=== PATIENT | female | born 1975 | race Caucasian/White ===

== ENCOUNTER 2019-12-26 10:36 | Outpatient (CLI) | payer OTHER ==
--- NOTE | 2019-12-26 11:19 | MMO ---
Left Breast MAMMO Unilat Diag DDI LT+AVEL. CLINICAL HISTORY: Patient is 44 years old and is seen for additional evaluation requested at current screening. The patient has no family history of breast cancer. The patient has no personal history of cancer. VIEWS: The views performed were: left craniocaudal spot compression with tomosynthesis; left mediolateral oblique spot compression with tomosynthesis; and left mediolateral with tomosynthesis. FILMS COMPARED: The present examination has been compared to prior imaging studies performed at [facility] on 12/22/2019, and at [facility] on 12/04/2014. This study has been interpreted with the assistance of computer-aided detection. MAMMOGRAM FINDINGS: There are scattered fibroglandular densities. The questionable asymmetric density did not persist with the additional views. There are no suspicious masses, suspicious calcifications, or new areas of architectural distortion. IMPRESSION: THERE IS NO MAMMOGRAPHIC EVIDENCE OF MALIGNANCY. A ROUTINE FOLLOW-UP MAMMOGRAM IN 1 YEAR IS RECOMMENDED. THE RESULTS OF THIS EXAM WERE SENT TO THE PATIENT. ACR BI-RADS Category 2 - Benign finding MAMMOGRAPHY NOTE: 1. A negative mammogram report should not delay a biopsy if a dominant of clinically suspicious mass is present. 2. Approximately 10% to 15% of breast cancers are not detected by mammography. 3. Adenosis and dense breasts may obscure an underlying neoplasm. Reported by: KRAIG REYNOSO MD Electonically Signed: [id number]
== END 2019-12-26 10:37 | disposition home or self-care (01) ==
LOC: BICMAMMO 10:36
PROVIDERS: ATTEND Obstetrics & Gynecology
DX: R92.8 Other abnormal and inconclusive findings on diagnostic imaging of breast (principal)
CPT/HCPCS: G0279

== ENCOUNTER 2020-01-26 10:31 | Day surgery (SDC) | payer OTHER ==
[2020-01-22 00:14] LABS: #Basophils 0.1 10x3/uL (0.0-0.2); #Eosinphils 0.1 10x3/uL (0.0-0.5); #Monocytes 0.7 10x3/uL (0.0-1.1); #Neutrophils 4.6 10x3/uL (1.5-8.4); %Basophils 0.6 % (0.0-2.0); %Eosinophils 1.1 % (0.0-6.0); %Lymphocytes 31.6 % (18.0-47.0); %Monocytes 9.3 % (0.0-10.0); %Neutrophils 57.3 % (40.0-75.0); Hemoglobin 13.6 g/dL (12.0-16.0); Mean Corpuscular HGB CONC 32.6 G/DL (32.0-36.0); Mean Corpuscular Hemoglobin 30.2 PG (27.0-33.0); Mean Corpuscular Volume 92.7 fl (80.0-100.0); Mean Platelet Volume 11.3 fl (7.4-10.4); Platelet Count 246 10x3/uL (130-400); RBC Distribution Width 13.2 % (11.5-14.5)
[2020-01-22 00:25] LABS: BHCG - Serum Negative (NEGATIVE); Pregs Control Background? CLEAR/WHITE (CLR/WHITE); Pregs Control Bar Appear? YES (CONTROL BAR)
[2020-01-22 13:15] LABS: SARS-CoV-2 MS2 Positive; SARS-CoV-2 N Gene Negative; SARS-CoV-2 S Gene Negative; SARS-CoV-2 by NAA Not Detected (NotDetected); SARS-CoV-2 orf1ab Negative
[2020-01-23 10:02] VITALS: BMI 28.3
[~2020-01-26 10:31] MED LIST: Dexamethasone 20 MG/5 ML VIAL ONE; Glycopyrrolate 0.2 MG/ML 5 ML SYRINGE ONE; Lidocaine 1% PF 5 ML VIAL ONE; Ondansetron PF 4 MG/2 ML Vial ONE; PROPOFOL 200 MG/20 ML VIAL ONE; Rocuronium Bromide 10 MG/ML (10ML VIAL) ONE
[2020-01-26] MEDS ORDERED: Famotidine/PF 20 mg/2ml Vial ONE (10:47)
[2020-01-26] MEDS ORDERED: CeleCOXIB 100 MG CAP ONE (10:47)
[2020-01-26] MEDS ORDERED: Gabapentin 300 MG CAP ONE (10:47)
[2020-01-26] MEDS ORDERED: Midazolam HCl 2 mg/2 ml Vial ONE ×2 (13:25→14:03)
[2020-01-26] MEDS ORDERED: Fentanyl 100 MCG/2 ML VIAL ONE (14:03)
[2020-01-26] MEDS ORDERED: Bupivacaine PF 0.5% 30 ML VIAL ONE (14:06)
[2020-01-26] MEDS ORDERED: Lidocaine 1% w/Epinephrine 1:100K 20 ML VIAL ONE (14:07)
[2020-01-26] MEDS ORDERED: Bisacodyl 10 MG SUPP PR PRN (14:47)
[2020-01-26] MEDS ORDERED: Promethazine HCl 25 MG/ML VIAL IM PRN ×2 (14:47→16:34)
[2020-01-26] MEDS ORDERED: traMADol HCl 50 MG TAB PO PRN (14:47)
[2020-01-26] MEDS ORDERED: HYDROcodone/Acetaminophen 5/325 mg Tablet PO PRN ×2 (14:47)
[2020-01-26] MEDS ORDERED: diphenhydrAMINE 25 MG CAP PO PRN (14:47)
[2020-01-26] MEDS ORDERED: Morphine 4 MG/ML VIAL SLOW IVP PRN (14:47)
[2020-01-26] MEDS ORDERED: Simethicone Chewable 80 MG TAB PO PRN (14:47)
[2020-01-26] MEDS ORDERED: Ondansetron PF 4 MG/2 ML Vial IVP PRN (14:47)
[2020-01-26] MEDS ORDERED: Sodium Chloride 0.9% 1,000 ML IV SCH (15:00)
[2020-01-26] MEDS ORDERED: Ropivacaine 0.2% 550 ML 750 ML NERVE BLCK SCH ×2 (15:00→16:30)
[2020-01-26] MEDS ORDERED: Promethazine HCl 25 MG/ML VIAL SLOW IVP PRN (16:34)
[2020-01-26] MEDS ORDERED: Meperidine HCl/PF 25 MG/ML VIAL SLOW IVP PRN (16:34)
[2020-01-26] MEDS ORDERED: Ondansetron HCl/PF 4 MG/2 ML Vial IVP PRN (16:34)
[2020-01-26] MEDS ORDERED: Ketorolac Tromethamine 30 MG/ML VIAL IVP SCH (18:00)
--- NOTE | 2020-01-26 19:12 | OP ---
DATE OF PROCEDURE: 01/26/2020 PREOPERATIVE DIAGNOSES: 1. Menorrhagia, dysmenorrhea. 2. Desires to clinical surgical management of hysterectomy. PROCEDURES PERFORMED: 1. Removal of ParaGard IUD. 2. Robotic-assisted total laparoscopic hysterectomy with bilateral salpingectomy. 3. ON-Q pump placement. MIDDLE SCHOOL PROFESSIONAL: Thelma Ortiz PA-C COMPLICATIONS: None. ESTIMATED BLOOD LOSS: Less than 50 mL. OPERATIVE FINDINGS: 1. Normal-appearing vagina and cervix. 2. ParaGard IUD removed without difficulty. 3. Normal-appearing uterus and tubes. 4. Adhesions of the bladder to the cervix. 5. Adhesions of the right ovary to the uterus. ANESTHESIA: GETA. PROCEDURE IN DETAIL: The patient was taken back to the OR with IV fluids running. When she was in the OR, general anesthesia was obtained. The patient was placed in low dorsal lithotomy position. The vagina and abdomen were prepped and draped in normal fashion for gynecologic surgery. The surgeons were gowned and gloved. Johnson catheter was placed to drain the bladder and attached to a Grayson syringe for bladder manipulation if needed during the case. The vagina was inspected with a speculum. The cervix was grasped with a single-tooth tenaculum and sounded to 8 cm. A PARK manipulator was assembled with 8-cm tip and a 4-cm cup and placed in the uterus and vagina in routine fashion for uterine manipulation during the case. The surgeon's gloves were changed. Attention was turned to the laparoscopic portion of the case. Beginning at the supraumbilical fold, local anesthesia was placed underneath the skin. A 12-mm skin incision was made with a scalpel. The Veress needle was placed through this incision and the abdomen was insufflated without difficulty. The needle was removed. A 12-mm trocar was placed through the distended abdomen and the laparoscope was placed through this trocar with the above findings noted. The patient was placed in Trendelenburg position in similar fashion and under direct visualization, a right upper quadrant 11-mm medical receptionist assistant port and right and lower quadrant 8-mm robotic trocar ports were placed under direct visualization without complication. With all 4 ports placed, the robotic arm was docked at the patient's bedside and the instruments were directed under direct visualization into the pelvis. The combination of monopolar scissors and bipolar fenestrated grasper were used to complete the case. Beginning on the patient's left side, the left fallopian tube was grasped and elevated away from the pelvic sidewall. It was cauterized and transected and removed from the operative field. The utero-ovarian ligament on the patient's left side was cauterized and transected. The round ligament on the patient's left side was cauterized, transected, and divided into anterior and posterior leaves. The round ligament was dissected down towards the level of the uterine artery. The anterior aspect of the ligament was taken down towards the level of the cervix. Some adhesions were noted, which appeared to be pulling the bladder up over the cervix. The bladder was back filled and cervicovesical fascia was dissected to allow the bladder to fall away from the planned colpotomy site. Next, the bladder was emptied. The uterine artery on the patient's left side was further skeletonized. It was then cauterized and transected. Attention was then turned to the right side. The right fallopian tube was cauterized and transected and removed from the operative field. The right ovary was noted to be densely adhered to the posterior and lateral aspects of the uterus. The round ligament on the patient's right side was cauterized transected and dissected down into the anterior and posterior leaves towards the level of the uterine artery. The right ovarian ligament and adhesions were then taken down to allow the right ovary to fall away to the pelvic sidewall. The bladder was backfilled again and from the right side moving medially, the anterior leaf of the round ligament created a bladder flap and the bladder was further dissected away from the planned colpotomy site. The uterine artery on the patient's right side was skeletonized, cauterized, and transected. The colpotomy was then performed excising the uterus and cervix from the vagina circumferentially. The uterine cervix specimen was then retracted into the vagina. The vaginal cuff was copiously irrigated and dry. Any small areas of bleeding were controlled with Bovie cauterization. The vagina was then reapproximated in 2 layers with a running suture of Stratafix suture. After the second layer closure, the vagina was copiously irrigated and suctioned dry. No areas of bleeding were noted. The ureters, which had been identified earlier in the case were again examined and vermiculation was noted bilaterally. The pressure was dropped to 6 mmHg and there was no evidence of bleeding. An ON-Q catheter tip was placed under direct visualization through the abdominal wall and directed down into the pelvis. It was primed. All of the trocars were then removed from the abdomen. The gas was released from the abdomen. The supraumbilical fascia was closed with Vicryl suture. All 4 skin incisions were closed with Monocryl suture and dressed with Dermabond dressing. The vagina was inspected at the end of the case with no bleeding noted. The patient was then cleaned, extubated, and transferred to the recovery room in good condition. Job ID: [id number]
[2020-01-26] MEDS ORDERED: Topiramate 100 MG TAB PO SCH (21:00)
[2020-01-26 23:11] VITALS: BP 155/92; TEMP 98.8
[2020-01-27] MEDS ORDERED: Ibuprofen 800 MG TAB PO SCH (06:00)
[2020-01-27] MEDS ORDERED: Escitalopram Oxalate 20 mg Tablet PO SCH (09:00)
== END 2020-01-26 14:32 | disposition home or self-care (01) ==
LOC: SDC 10:31 → UNDOADMIN 14:47 → 3SW 14:47 → UNDODISIN 20:40
PROVIDERS: ATTEND Obstetrics & Gynecology
PROC: 0UT94ZZ Resection of Uterus, Percutaneous Endoscopic Approach (ICD-10-PCS; principal; 2020-01-26)
PROC: 0UT74ZZ Resection of Bilateral Fallopian Tubes, Percutaneous Endoscopic Approach (ICD-10-PCS; principal; 2020-01-26)
DX: D25.1 Intramural leiomyoma of uterus (principal); N73.6 Female pelvic peritoneal adhesions (postinfective); N92.0 Excessive and frequent menstruation with regular cycle; N94.6 Dysmenorrhea, unspecified; G89.18 Other acute postprocedural pain; G43.909 Migraine, unspecified, not intractable, without status migrainosus; F41.9 Anxiety disorder, unspecified; F17.200 Nicotine dependence, unspecified, uncomplicated; Z79.899 Other long term (current) drug therapy; Z20.828 Contact with and (suspected) exposure to other viral communicable diseases
CPT/HCPCS: 36415; 84703; 85025; 86850; 86900; 86901; 87635; 88307; A4306; J0690; J1100; J1885; J2250; J2405; J2704; J2795; J3010; S0020; S0028; U0003

== ENCOUNTER 2020-02-11 09:35 | Emergency (ER) | payer SELFPAY ==
[2020-02-11] MEDS ORDERED: Morphine 4 MG/ML VIAL ONE (10:40)
[2020-02-11] MEDS ORDERED: Ondansetron PF 4 MG/2 ML Vial ONE (10:40)
[2020-02-11 10:51] LABS: #Eosinphils 0.2 thou/uL (0.0-0.7); #Monocytes 0.7 thou/uL (0.11-0.59); #Neutrophils 5.7 thou/uL (1.40-6.50); %Basophils 0.6 % (0.0-1.0); %Eosinophils 1.9 % (0.0-10.0); %Lymphocytes 22.9 % (21.0-51.0); %Neutrophils 66.6 % (42.0-75.0); Hemoglobin 14.4 g/dL (12.0-16.0); Mean Corpuscular HGB CONC 33.4 g/dL (32.0-36.0); Mean Corpuscular Hemoglobin 30.8 pg (27.0-31.0); Mean Corpuscular Volume 92.2 fL (78.0-98.0); Mean Platelet Volume 8.5 fL (7.4-10.4); Platelet Count 234 thou/uL (130-400); RBC Distribution Width 12.2 % (11.5-14.5); Red Blood Cell (RBC) Count 4.68 mill/uL (4.20-5.40); White Blood Cell (WBC) Count 8.5 thou/uL (4.8-10.8)
[2020-02-11 10:58] LABS: Bilirubin Negative (Negative); Blood, Urine Negative (Negative); Clarity Clear (Clear); Glucose, Urine (Dipstick) Normal (Negative); Ketone, Urine Negative (Negative); Leukocyte Negative Leu/uL (Negative); Nitrite Negative (Negative); Protein, Urine (Dipstick) Negative (Neg-Trace); Specific Gravity, Urine 1.003 (1.002-1.036); Urobilinogen Normal mg/dL (Less than 2)
--- NOTE | 2020-02-11 10:59 | CT ---
CT abdomen and pelvis with IV contrast HISTORY: Pelvic pain and bleeding. Hysterectomy 2 weeks ago. FINDINGS: The lung bases are clear. Tiny hypodense lesion within the left liver lobe likely represent s a cyst. The spleen, kidneys, adrenal glands, and pancreas are unremarkable. Appendix not inflamed. No evidenc e of bowel obstruction or inflammation. Minimal free fluid in the cul-de-sac. Small amount of fluid and gas within the nondistended vaginal v aster. At the expected location of the right ovary, the largest cyst measures up to 3.5 cm and contains smal l amount of internal hyperdense debris. At the expected location of the left ovary, small follicles measure up to 1.5 cm. Each ovary lies high within the pelvis and might not be visible with transabdom inal sonography. IMPRESSION : Findings a recent hysterectomy. Small amount of gas and fluid within the nondilated vaginal vault. No evidence of complication. Right ovarian cyst 3.5 cm. Position of the ovaries is high and would likely not allow imaging with transabdominal sonography. Tr ansvaginal sonography likely not possible given recent post operative status.
[2020-02-11 11:18] LABS: ALT (SGPT) Less than 7 U/L (8-55); AST (SGOT) 9 U/L (5-34); Alkaline Phosphatase 77 U/L (40-110); BUN (Urea Nitrogen) 9 mg/dL (7.0-18.7); Bilirubin, Total 0.3 mg/dL (0.2-1.2); Calc. Creatinine Clearance 0 mL/min (70-130); Calcium 9.1 mg/dL (7.8-10.44); Carbon Dioxide 21 mmol/L (22-29); Chloride 110 mmol/L (98-107); Globulin 3.3 g/dL (2.4-3.5); Glucose 91 mg/dL (70-105); Potassium 3.7 mmol/L (3.5-5.1); Protein, Total 7.3 g/dL (6.0-8.3); Sodium 142 mmol/L (136-145)
[2020-02-11 11:21] LABS: Anion Gap 15 mmol/L (10-20)
== END 2020-02-11 12:15 | disposition home or self-care (01) ==
LOC: ERS 09:35
DX: N83.201 Unspecified ovarian cyst, right side (principal); F17.210 Nicotine dependence, cigarettes, uncomplicated
CPT/HCPCS: 51701; 74177; 80053; 81003; 83605; 85025; 86850; 86900; 86901; 96374; 96375; J2270; J2405